=== PATIENT | female | born 1955 | race Caucasian/White ===

== ENCOUNTER 2018-06-22 06:59 | Observation (INO) | payer BC ==
[2018-06-20 09:16] LABS: BASOPHILS # (AUTO) 0.1 (0.0-0.1); BASOPHILS % 0.9 % (0.0-1.0); EOSINOPHILS # (AUTO) 0.2 (0.0-0.4); EOSINOPHILS % 4.2 % (0.0-6.0); HEMATOCRIT 39.6 % (34.2-44.1); HEMOGLOBIN 13.2 g/dL (12.0-16.0); LYMPHOCYTES # (AUTO) 3.8 (1.0-3.2); LYMPHOCYTES % 70.1 % (18.0-39.1); MEAN CORPUSCULAR HEMOGLOBIN 30.7 pg (28-32); MEAN CORPUSCULAR HGB CONC 33.3 g/dL (31-35); MEAN CORPUSCULAR VOLUME 92.1 fL (81-99); MONOCYTES # (AUTO) 0.4 (0.2-0.8); MONOCYTES % 6.4 % (4.4-11.3); PLATELET COUNT 251 x10e3/uL (140-360)
--- NOTE | 2018-06-20 09:29 | Diagnostic Imaging Report ---
EXAM: CHEST 2 VIEWS DATE: 06/20/2018 8:29 AM INDICATION: Preop back surgery COMPARISON: None FINDINGS: Lines and tubes: None Heart size normal. No focal pulmonary opacity, pleural effusion or pneumothorax. Upper abdomen unremarkable. No acute bony abnormality. IMPRESSION: No evidence for acute disease. Signed by: Dr. Andre Weiner M.D. on 06/20/2018 9:25 AM
[2018-06-20 09:30] LABS: INR 0.87; PROTHROMBIN TIME 12.6 seconds (11.9-14.5)
[2018-06-20 09:31] LABS: PARTIAL THROMBOPLASTIN TIME 28.1 seconds (23.8-35.5)
[2018-06-20 09:35] LABS: ANION GAP 15.7 mmol/L (8-16); CALCIUM 9.8 mg/dL (8.4-10.2); POTASSIUM 3.7 mmol/L (3.5-5.1)
[2018-06-20 12:46] LABS: ANISOCYTOSIS SLIGHT; EOSINOPHILS % (MANUAL) 4 % (0-7); LYMPHOCYTES % (MANUAL) 57 % (19-48); MONOCYTES % (MANUAL) 5 % (3.4-9.0); NEUTROPHILS % (MANUAL) 28 % (40-74); PLATELET ESTIMATE ADEQUATE; PLATELET MORPHOLOGY COMMENT FEW LARGE; POIKILOCYTOSIS SLIGHT; RBC MORPHOLOGY COMMENT NORMAL
[~2018-06-22] VITALS: Ht 160 cm; Wt 93.2 kg
[~2018-06-22 06:59] MED LIST: ALENDRONATE SOD70 MG PO; BACITRACIN 50,000 UNIT VIAL ONE; BUPIVACAINE 0.5%/EPI 30 ML SDV INJ ONE; FISH OIL 1,0001 EAC2 PO; FOLIC ACID1 MG PO; GELATIN SPONGE 12-7MM ONE; MECLIZINE HCL12.5 MG PO; METHOTREXATE2.5 MG PO; THROMBIN FOR SOLN 5,000 UNIT VIAL ONE; TRIAMTERENE PO; VITAMIN D5000 UNIT PO; XELJANZ PO
--- OUTSIDE RECORDS SUMMARY | 2018-06-22 07:01 | XMS REPORT ---
[facility] Address Unknown Phone Unavailable Care Team Providers Care Rn Pediatric Name Role Phone MELVI ABDULLAHI Unavailable Unavailable Problems This patient has no known problems. Allergies, Adverse Reactions, Alerts This patient has no known allergies or adverse reactions. Medications This patient has no known medications. Results Test Description Test Time Test Comments Text Results Atomic Results Result Comments CHEST 2 VIEWS 2018-06-20 09:24:00 [place] [address] Patient Name: YULIYA CRISTINA MR #: [id number] : 1955 Age/Sex: 62/F Req #: [id number] Adm Physician: Ordered by: MELVI ABDULLAHI MD Report #: [id number] Location: OR Room/Bed: Procedure: [id number] DX/CHEST 2 VIEWS Exam Date: 06/20/18 Exam Time: 0840 REPORT STATUS: Signed EXAM: CHEST 2 VIEWS DATE: 06/20/2018 8:29 AM SKINNY CATION: Preop back surgery COMPARISON: None FINDINGS: Lines and tubes: None Heart size normal. No focal pulmonary opacity, pleural effusion or pneumothorax. Upper abdomen unremarkable. No acute bony abnormality. IMPRESSION: No evidence for acute disease. Signed by: Dr. Jacqui Britton M.D. on 06/20/2018 9:25 AM Dictated By: JACQUI BRITTON MD 4 Transcribed By: MIRZA on 06/20/18924 COPY TO: MELVI ABDULLAHI MD
[2018-06-22] MEDS ORDERED: LIDOCAINE HCL (LTA) 4 ML SOLN ONE (07:23)
[2018-06-22] MEDS ORDERED: ACETAMINOPHEN 1000 MG/100 ML 100 ML IV ONE (07:23)
[2018-06-22] MEDS ORDERED: CEFAZOLIN SOD 2 GM/D5W 50ML 50 ML IV ONE (07:50)
--- NOTE | 2018-06-22 09:32 | Diagnostic Imaging Report ---
EXAM: SPINE 1 VW LUMBAR DATE: 06/22/2018 855 AM INDICATION: Left L3 for disc herniation COMPARISON: None FINDINGS: A single lateral cross table view of the lumbar spine is submitted. Lumbar body heights and disc spaces are maintained. Without prior exam for comparison, 5 lumbar-type vertebrae are assumed. Making this allowance, wires or leads are seen crossing the spine at the L2-3 level. IMPRESSION: No acute bony abnormality. Signed by: Dr. Andre Weiner M.D. on 06/22/2018 9:28 AM
--- NOTE | 2018-06-22 09:35 | Diagnostic Imaging Report ---
EXAM: SPINE 1 VW LUMBAR DATE: 06/22/2018, 9:04 AM INDICATION: Left L3-4 disc herniation COMPARISON: Lateral lumbar spine, 06/22/2018, 8:55 AM FINDINGS: A single crosstable lateral view of the lumbar spine is submitted. The lumbar body heights and disc spaces are maintained. A metallic instrument is seen projected behind the L3-4 interspace, assuming 5 lumbar type vertebrae. There is no prior exam to confirm the number of lumbar vertebrae. IMPRESSION: Metallic instrument projects behind L3-4, assuming 5 lumbar type vertebrae. Signed by: Dr. Andre Weiner M.D. on 06/22/2018 9:32 AM
[2018-06-22] MEDS ORDERED: ACETAMINOPHEN 325 MG TAB PO PRN (10:00)
[2018-06-22] MEDS ORDERED: ZOLPIDEM TARTRATE 5 MG TAB PO PRN (10:00)
[2018-06-22] MEDS ORDERED: CARISOPRODOL 350 MG TAB PO PRN (10:00)
[2018-06-22] MEDS ORDERED: ONDANSETRON HCL INJ 2MG/ML 2ML 2 MG/ML VIAL IV PRN (10:00)
[2018-06-22] MEDS ORDERED: MORPHINE SULFATE 5 MG/ML VIAL IM PRN (10:00)
[2018-06-22] MEDS ORDERED: OXYCODONE/ACETAMINOPHEN 5-325 1 EACH TABLET PO PRN (10:00)
[2018-06-22] MEDS ORDERED: MAGNESIUM/ALUMINUM/SIMETHICONE 30 ML UDC PO PRN (10:00)
[2018-06-22] MEDS ORDERED: PROMETHAZINE HCL (IM) 25 MG/ML VIAL IM PRN (10:00)
[2018-06-22] MEDS ORDERED: KETOROLAC TROMETHAMINE 30 MG/ML VIAL ONE (10:27)
[2018-06-22] MEDS ORDERED: FENTANYL CITRATE/PF 100MCG/2 ML INJ ONE ×2 (10:27→17:49)
--- NOTE | 2018-06-22 11:50 | NUR ---
Recvd patient from [facility], AAOx3, assisted her to bed, incision site in lumbar site lower back is intact, no hematoma or bruises noted, pain 4/10 on same site, at bed side. keep monitoring
[2018-06-22 11:53] VITALS: BP 142/79
[2018-06-22 12:07] VITALS: BP 142/79
[2018-06-22] MEDS: LACTATED RINGER'S 1,000 ML IV SCH ×2 (12:35→21:58)
[2018-06-22] MEDS ORDERED: DEXAMETHASONE SOD PHOS INJ 4 MG/ML VIAL ONE ×2 (14:27→14:28)
[2018-06-22] MEDS ORDERED: PROPOFOL IV EMULSION 10 MG/ML 20 ML VIAL ONE ×2 (14:27→14:28)
[2018-06-22] MEDS ORDERED: SEVOFLURANE INHAL SOLN 250 ML PEN BTL ONE ×2 (14:27→14:28)
[2018-06-22] MEDS ORDERED: ROCURONIUM BROMIDE 10 MG/ML 5ML VIAL ONE ×2 (14:27→14:28)
[2018-06-22] MEDS ORDERED: ACETAMINOPHEN 1000 MG/100 ML IV ONE (14:27)
[2018-06-22] MEDS ORDERED: LIDOCAINE HCL 2% LOCAL INJ 5 ML SDV VIAL INJ ONE ×2 (14:27→14:28)
[2018-06-22] MEDS ORDERED: ONDANSETRON HCL INJ 2MG/ML 2ML 2 MG/ML VIAL ONE ×2 (14:27→14:28)
[2018-06-22] MEDS ORDERED: NEOSTIGMINE 5 MG/5ML SYR ONE (14:28)
[2018-06-22] MEDS ORDERED: GLYCOPYRROLATE INJ 1MG/ 5 ML SYR ONE (14:28)
[2018-06-22 15:06] VITALS: BP 110/61
[2018-06-22] MEDS: CEFAZOLIN SOD 1 GM/NS 50ML 50 ML IV SCH (15:55)
[2018-06-22] MEDS ORDERED: MIDAZOLAM HCL 2 MG/2 ML VIAL ONE (17:49)
--- NOTE | 2018-06-22 18:19 | Operative Report ---
DATE OF PROCEDURE: 06/22/2018 PREOPERATIVE DIAGNOSIS: Left L3-4 disk herniation with radiculopathy, M51.16. POSTOPERATIVE DIAGNOSIS: Left L3-4 disk herniation with radiculopathy, M51.16. PROCEDURE: Left L3-4 laminotomy, medial facetectomy, and microsurgical diskectomy, 50964. ANESTHESIA: General. INDICATIONS: The patient is a 62-year-old woman, who presents with left L3-4 paracentral disk herniation with left L4 radiculopathy and was taken to the operating room for microsurgical diskectomy. PROCEDURE IN DETAIL: After induction of general anesthesia, the patient was placed on the operating table in prone position on the Marc frame. The lumbar region was prepped and draped in sterile fashion. A preoperative x-ray was obtained and a small midline incision was created. Lumbar fascia was opened in the left of midline and a subperiosteal dissection was carried out to expose the left side L3 and L4 lamina and the medial aspect of the facet joint. The second x-ray confirmed correct localization. The operating microscope was brought in. A high speed drill equipped with court bur was used to drill the inferior aspect of the lamina of L3 and a medial rim of the L3-4 facet joint and superior rim of the lamina of L4. The ligamentum labrum was resected. The dural sac and L4 nerve root were exposed. The nerve root was slightly retracted medially. Herniated disk material came into view. The posterior longitudinal ligament and posterior annulus of this were incised with #11 blade. The subligamentous disk herniation was retrieved with a ball probe and removed. The loose contents of the L3-4 disks were evacuated with curettes and pituitary rongeurs. Meticulous hemostasis was secured. The retractor was removed. The lumbar fascia was closed with 0 Vicryl sutures. Subcutaneous layer was closed with 2-0 Vicryl sutures. The skin was closed with 3-0 Monocryl sutures in a subcuticular fashion. Steri-Strips and dressings were applied. The patient was awakened, extubated, and taken to postanesthesia care unit in stable condition. No intraoperative complications were encountered. Estimated blood loss was 10 mL. Duke Campa MD PP/MARQUISE /[id number]
--- NOTE | 2018-06-22 18:27 | NUR ---
patient resting in bed, dressing intact on lower back lumbar side, no bruise or drainage, pain 2/10, no distress noted
--- NOTE | 2018-06-22 19:15 | NUR ---
Received report from previous nurse. SCD on patients feet. at bedside. call light within reach. Dressing on lumbar area is dry and intact.
[2018-06-22 19:40] VITALS: BP 119/57
[2018-06-22] MEDS ORDERED: MECLIZINE HCL 12.5 MG TAB PO SCH (21:00)
[2018-06-22] MEDS: HYDROMORPHONE 2MG/ML 2 MG/ML ML IV PRN (21:47)
[2018-06-23] MEDS: LACTATED RINGER'S 1,000 ML IV SCH (00:22)
[2018-06-23] MEDS: CEFAZOLIN SOD 1 GM/NS 50ML 50 ML IV SCH ×2 (00:30→07:39)
[2018-06-23 01:00] VITALS: BP 132/58
[2018-06-23 01:15] VITALS: BP 125/65
--- NOTE | 2018-06-23 03:38 | NUR ---
Call light within reach. No pain or distress. Patient asleep in bed. SCD on bilateral legs
[2018-06-23 04:40] VITALS: BP 141/74
[2018-06-23] MEDS: HYDROMORPHONE 2MG/ML 2 MG/ML ML IV PRN (04:47)
[2018-06-23] MEDS ORDERED: ALENDRONATE SODIUM 70 MG TAB PO SCH ×2 (06:00→07:30)
--- NOTE | 2018-06-23 07:35 | NUR ---
REPORT GIVEN TO ONCOMING NURSE. CALL LIGHT WITHIN REACH.
--- NOTE | 2018-06-23 08:10 | NUR ---
pt resting in bed, sitting upright. no c/o pain or s/s distress.
[2018-06-23 08:13] VITALS: BP 143/71
[2018-06-23 08:31] VITALS: BP 143/71
[2018-06-23] MEDS ORDERED: FOLIC ACID 1 MG TAB PO SCH (09:00)
[2018-06-23] MEDS ORDERED: TRIAMTERENE 37.5 MG PO SCH (09:00)
--- NOTE | 2018-06-23 10:16 | NUR ---
reviewed dc instructions with pt, at bedside, verbalized understanding. vs stable. dc via [facility] and private auto.
== END 2018-06-23 10:15 | disposition home or self-care (01) ==
LOC: OR 06:59 → PACU V 09:53 → IMCU 11:50
PROVIDERS: ADMIT Neurological Surgery; ATTEND Neurological Surgery
DX: M51.16 Intervertebral disc disorders with radiculopathy, lumbar region (principal); I10 Essential (primary) hypertension; L40.50 Arthropathic psoriasis, unspecified; M85.80 Other specified disorders of bone density and structure, unspecified site; Z01.810 Encounter for preprocedural cardiovascular examination; Z01.812 Encounter for preprocedural laboratory examination; Z01.811 Encounter for preprocedural respiratory examination
CPT/HCPCS: 36415; 63047; 71046; 72020; 80048; 85025; 85610; 85730; 86850; 86870; 86880; 86900; 86905; 88304; 93005; 96361; 99001; G0378 ×2; J0131; J0690 ×3; J1100; J1170 ×2; J1885; J2001; J2250; J2405; J2704; J3490; J7121; J8597; J2270

== ENCOUNTER 2018-07-21 07:56 | Outpatient (RCR) | payer BC ==
[~2018-07-21 07:56] MED LIST changes: -BACITRACIN 50,000 UNIT VIAL ONE; -BUPIVACAINE 0.5%/EPI 30 ML SDV INJ ONE; -GELATIN SPONGE 12-7MM ONE; -THROMBIN FOR SOLN 5,000 UNIT VIAL ONE
== END 2018-07-30 ==
LOC: PT 07:56
PROVIDERS: ATTEND Neurological Surgery
DX: M54.5 Low back pain (principal); M51.16 Intervertebral disc disorders with radiculopathy, lumbar region; M62.81 Muscle weakness (generalized)

== ENCOUNTER 2023-12-30 07:00 | Outpatient (RCR) | payer BC | END 2023-12-31 | disposition home or self-care (01) | LOC: PT 07:00 | PROVIDERS: ATTEND Specialist | DX: M70.62 Trochanteric bursitis, left hip (principal) ==

== ENCOUNTER 2024-01-13 07:00 | Outpatient (RCR) | payer BC | END 2024-01-30 | LOC: PT 07:00 | PROVIDERS: ATTEND Specialist | DX: M70.62 Trochanteric bursitis, left hip (principal) ==